=== PATIENT | female | born 1980 | race Caucasian/White ===

== ENCOUNTER 2017-10-03 14:38 | Emergency (ER) | payer OTHER ==
[2017-10-03 15:15] VITALS: BP 150/82
--- NOTE | 2017-10-03 16:25 | UC ---
Complaint Female HPI - HPI Summary HPI Summary: Patient completed a course of Keflex about 2 weeks ago for urinary tract infection. Patient is to urgent care tonight with pain urgency burning and frequency. C/o low back but no flank pain, no fever - History Of Current Complaint Chief Complaint: UCGU Stated Complaint: URINARY Time Seen by Provider: 10/03/17 16:21 Hx Obtained From: Patient Hx Last Menstrual Period: 09/16/17 ?: No Onset/Duration: Sudden Onset, Lasting Days - 2-3 Timing: Constant Pain Intensity: 8 Pain Scale Used: 0-10 Numeric Character: Burning Aggravating Factor(s): Urination Associated Signs And Symptoms: Positive: Negative - Allergies/Home Medications Allergies/Adverse Reactions: Allergies Allergy/AdvReac Type Severity Reaction Status Date / Time No Known Allergies Allergy Verified 10/03/17 15:18 Home Medications: Home Medications Gabapentin CAP(*) [Neurontin 300 CAP(*)] 600 mg PO Q8H 10/03/17 [History Confirmed 10/03/17] busPIRone TAB* [Buspar TAB *] 15 mg PO BID 10/03/17 [History Confirmed 10/03/17] hydrOXYzine HCl [Hydroxyzine HCl] 25 mg PO Q12H PRN 10/03/17 [History Confirmed 10/03/17] PMH/Surg Hx/FS Hx/Imm Hx Previously Healthy: No - septic arthritis - Surgical History Surgical History: Yes Surgery Procedure, Year, and Place: RIGHT HIP REPLACEMENT. LEFT ACHILLES REPAIR. LEFT ULNAR NERVE DECOMPRESSION. RIGHT LEG VEIN STRIPPING. UMBILICAL HERNIA REPAIR. LAP HIRAM. I&D OF BILATERAL LEGS WITH WOUND VACS - Family History Known Family History: Positive: None - Social History Occupation: Disabled Lives: With Family Alcohol Use: Occasionally Substance Use Type: Marijuana Substance Use Comment - Amount & Last Used: DAILY Smoking Status (MU): Smoker, Current Status Unknown Household Exposure Type: Cigarettes Review of Systems Constitutional: Negative Skin: Negative Eyes: Negative ENT: Negative Respiratory: Negative Cardiovascular: Negative Gastrointestinal: Negative Genitourinary: Dysuria, Frequency, Urgency Motor: Negative Neurovascular: Negative Musculoskeletal: Negative Neurological: Negative Psychological: Negative Is Patient Immunocompromised?: No All Other Systems Reviewed And Are Negative: Yes Physical Exam Triage Information Reviewed: Yes Appearance: Well-Appearing, No Pain Distress, Well-Nourished Vital Signs: Initial Vital Signs Temp 98.1 F 10/03/17 15:07 Pulse 109 10/03/17 15:07 Resp 18 10/03/17 15:07 BP 150/82 10/03/17 15:07 Pulse Ox 100 10/03/17 15:07 Vital Signs Reviewed: Yes Eye Exam: Normal Eyes: Positive: Conjunctiva Clear ENT Exam: Normal ENT: Positive: Normal ENT inspection, Hearing grossly normal. Negative: Muffled voice, Hoarse voice Dental Exam: Normal Neck exam: Normal Neck: Positive: Supple, Nontender Respiratory Exam: Normal Respiratory: Positive: Chest non-tender, Lungs clear, Normal breath sounds, No respiratory distress, No accessory muscle use Cardiovascular Exam: Normal Cardiovascular: Positive: RRR, No Murmur, Pulses Normal, Brisk Capillary Refill Abdominal Exam: Normal Abdomen Description: Positive: No Organomegaly, Soft, Other: - supra pubic discomfort. Negative: CVA Tenderness (R), CVA Tenderness (L), Distended, Guarding Bowel Sounds: Positive: Present Musculoskeletal Exam: Normal Musculoskeletal: Positive: Strength Intact, ROM Intact, No Edema Neurological Exam: Normal Neurological: Positive: Alert, Muscle Tone Normal Psychological Exam: Normal Skin Exam: Normal Diagnostics - Laboratory Diagnostic Studies Completed/Ordered: ua-+3 blood, protien, leukoesterace Complaint Female Dx - Course Course Of Treatment: rocephin, omnicef, culture urine follow with pcp - Differential Dx/Diagnosis Provider Diagnoses: elevated BP without dx of Hypertension, Reoccuring UTI Discharge - Sign-Out/Discharge Documenting (check all that apply): Discharge/Admit/Transfer - Discharge Plan Condition: Stable Disposition: AGAINST MEDICAL ADVICE Prescriptions: Cefdinir [Cefdinir 300 MG CAP] 300 mg PO BID #20 cap Patient Education Materials: Urinary Tract Infection in Women (DC), Dysuria (ED ), Hypertension (ED) Referrals: Jennifer Fuller DO [Primary Care Provider] - 2 Weeks - Billing Disposition and Condition Condition: STABLE Disposition: Against Medical Advice
[2017-10-03] MEDS ORDERED: Lidocaine 1%* 5 ML VIAL INJ ONE (16:34)
[2017-10-03] MEDS ORDERED: cefTRIAXone VIAL(*) 1,000 MG VIAL IM ONE (16:34)
== END 2017-10-03 17:09 | disposition left against medical advice (07) ==
LOC: UCCORT 14:38
DX: N39.0 Urinary tract infection, site not specified (principal); R03.0 Elevated blood-pressure reading, without diagnosis of hypertension; F17.210 Nicotine dependence, cigarettes, uncomplicated
CPT/HCPCS: 81003; 84702; 87086; 96372; 99202; G0463; J0696

== ENCOUNTER 2018-03-26 15:27 | Emergency (ER) | payer OTHER ==
[2018-03-26 15:57] VITALS: BP 123/78
[2018-03-26] MEDS ORDERED: Sulfamethox/Trimethoprim DS 800/160* TAB PO ONE (16:15)
[2018-03-26] MEDS ORDERED: Cephalexin CAP* 500 MG PO ONE (16:15)
--- NOTE | 2018-03-26 16:16 | UC ---
Skin Complaint HPI - HPI Summary HPI Summary: The patient is a 37-year-old female with right facial pain and swelling overlying her right cheek. She states that she has a history of cystic acne. She squeezed a pimple a few days ago. Over the past 24 hour she has had marked swelling of her right cheek. She denies any fever or chills. She states that she just got some upsetting news via her cell phone and that is why her pulse was rapid. She has had no nausea vomiting or diarrhea. She denies any history of MRSA. - History of Current Complaint Chief Complaint: UCSkin Time Seen by Provider: 03/26/18 16:02 Stated Complaint: RIGHT FACIAL SWELLING Hx Obtained From: Patient Hx Last Menstrual Period: 03/16/18 Onset/Duration: Gradual Onset Skin Exposure Onset/Duration: Hours Ago Timing: Constant Onset Severity: Mild Current Severity: Moderate Pain Intensity: 5 Pain Scale Used: 0-10 Numeric Character: Swelling, Redness, Raised, Painful Aggravating Factor(s): Touch - Allergy/Home Medications Allergies/Adverse Reactions: Allergies Allergy/AdvReac Type Severity Reaction Status Date / Time No Known Allergies Allergy Verified 03/26/18 15:45 Home Medications: Home Medications Acetaminophen [Tylenol Extra Strength] 1,000 mg PO Q8H PRN 03/26/18 [History Confirmed 03/26/18] Review of Systems All Other Systems Reviewed And Are Negative: Yes Constitutional: Positive: Negative Skin: Positive: Negative Eyes: Positive: Negative ENT: Positive: Negative Respiratory: Positive: Negative Cardiovascular: Positive: Negative Gastrointestinal: Positive: Negative Genitourinary: Positive: Negative Motor: Positive: Negative Neurovascular: Positive: Negative Musculoskeletal: Positive: Arthralgia - chronic Neurological: Positive: Negative Psychological: Positive: Negative PMH/Surg Hx/FS Hx/Imm Hx Previously Healthy: Yes - Surgical History Surgical History: Yes Surgery Procedure, Year, and Place: RIGHT HIP REPLACEMENT. LEFT ACHILLES REPAIR. LEFT ULNAR NERVE DECOMPRESSION. RIGHT LEG VEIN STRIPPING. UMBILICAL HERNIA REPAIR. LAP HIRAM. I&D OF BILATERAL LEGS WITH WOUND VACS - Family History Known Family History: Positive: Hypertension - Social History Alcohol Use: Rare Substance Use Type: Marijuana Substance Use Comment - Amount & Last Used: DAILY Smoking Status (MU): Smoker, Current Status Unknown Type: Cigarettes, eCigarettes Amount Used/How Often: 5 CIGS PER DAY Household Exposure Type: Cigarettes Physical Exam Triage Information Reviewed: Yes Appearance: Well-Appearing - non toxic, No Pain Distress, Well-Nourished Vital Signs: Initial Vital Signs Temp 98 F 03/26/18 15:48 Pulse 108 03/26/18 15:48 Resp 17 03/26/18 15:48 BP 123/78 03/26/18 15:48 Pulse Ox 99 03/26/18 15:48 Eyes: Positive: Conjunctiva Clear ENT: Positive: Hearing grossly normal. Negative: Nasal congestion, Nasal drainage, Trismus, Muffled voice Neck: Positive: Supple, Nontender, No Lymphadenopathy Respiratory: Positive: Lungs clear, Normal breath sounds, No respiratory distress, No accessory muscle use Cardiovascular: Positive: RRR, No Murmur, Tachycardia Musculoskeletal: Positive: ROM Intact, No Edema Neurological: Positive: Alert Psychological Exam: Normal Skin Exam: Other - see image Images Head: 1 - 2x2cm area of induration 2 - overlying erythema/lower lid edema Course/Dx - Diagnoses Provider Diagnosis: Cellulitis, face, Facial abscess Discharge - Sign-Out/Discharge Documenting (check all that apply): Patient Departure All imaging exams completed and their final reports reviewed: No Studies - Discharge Plan Condition: Stable Disposition: HOME Prescriptions: Cephalexin CAP* [Keflex CAP*] 500 mg PO QID #28 cap Sulfamethox/Trimethoprim DS* [Bactrim DS 800/160 TAB*] 1 tab PO BID #14 tab Patient Education Materials: Cellulitis (ED), Abscess (ED) Referrals: Jennifer Fuller DO [Primary Care Provider] - As Soon As Possible Additional Instructions: warm compresses don't squeeze TO ER FOR NEW OR WORSENING SYMPTOMS recheck in 48 hours if not improved - Billing Disposition and Condition Condition: STABLE Disposition: Home
== END 2018-03-26 16:30 | disposition home or self-care (01) ==
LOC: UCCORT 15:27
DX: L03.211 Cellulitis of face (principal); L02.01 Cutaneous abscess of face; F17.210 Nicotine dependence, cigarettes, uncomplicated; F17.290 Nicotine dependence, other tobacco product, uncomplicated
CPT/HCPCS: 99212; A9270-GY; G0463